=== PATIENT | female | born 1975 | race Caucasian/White ===

== ENCOUNTER 2018-05-29 10:05 | Emergency (ER) | payer OTHER ==
[2018-05-29 10:07] VITALS: BMI 35.2
[2018-05-29 11:09] VITALS: RESP 18; TEMP 98.2
[2018-05-29] MEDS ORDERED: Lidocaine 5% Patch TD ONE (11:47)
--- NOTE | 2018-05-29 11:59 | ED PDOC ---
Arrival/HPI - General Chief Complaint: Upper Extremity Problem/Injury Time Seen by Provider: 05/29/18 11:08 Historian: Patient - History of Present Illness Narrative History of Present Illness (Text): 05/29/18 11:25 43 year old female, whose past medical history includes anxiety and DVT, who presents to the Emergency department complaining of left-sided shoulder pain since 05/26/18, worse this morning. Patient reports the pain started with her left shoulder and radiated toward the back of her shoulder and to the neck. Patient states she was not able to sleep last night into this morning. Patient notes she is not able to lift her arm without pain, stating she felt numbness and pain when she was still able to lift and rotate her arm after onset. Patient states she took Tylenol for the pain, with no significant relief. Patient notes neck pain, numbness and tingling toward upper left arm, and shortness of breath with deep inhalation. Patient states she has never experienced these symptoms before. Patient denies any trauma, injury, fever, chills, chest pain, nausea, vomiting, diarrhea, urinary symptoms, back pain, headache, dizziness, or any other complaints. PMD: John Pickard Time/Duration: > week (pt notes onset as 3 days ago) Symptom Onset: Sudden Symptom Course: Unchanged Activities at Onset: Light Past Medical History - Provider Review Nursing Documentation Reviewed: Yes - Infectious Disease Hx of Infectious Diseases: None - Tetanus Immunization Tetanus Immunization: Unknown - Past Medical History Past Medical History: No Previous - Cardiac Hx Hypertension: Yes - Pulmonary Hx Asthma: Yes Hx Pulmonary Embolism: Yes (B/L x 2 years) - Hematological/Oncological Other/Comment: L leg DVT - Psychiatric Hx Psychophysiologic Disorder: No Hx Anxiety: No Hx Bipolar Disorder: No Hx Depression: No Hx Emotional Abuse: No Hx Hallucinations: No Hx Panic Disorder: No Hx Post Traumatic Stress Disorder: No Hx Psychosis: No Hx Physical Abuse: No Hx Schizophrenia: No Hx Sexual Abuse: No Hx Substance Use: Yes - Surgical History Hx Hysterectomy: Yes Hx Tubal Ligation: Yes - Anesthesia Hx Anesthesia: Yes Hx Anesthesia Reactions: No Hx Malignant Hyperthermia: No - Suicidal Assessment Feels Threatened In Home Enviroment: No Family/Social History - Physician Review Nursing Documentation Reviewed: Yes Family/Social History: No Known Family HX Smoking Status: Light Smoker < 10 Cigarettes Daily Hx Alcohol Use: Yes Frequency of alcohol use: Socially Hx Substance Use: Yes Substance used: marijuana Allergies/Home Meds Allergies/Adverse Reactions: Allergies No Known Allergies Allergy (Verified 06/02/16 19:08) Review of Systems - Physician Review All systems were reviewed & negative as marked: Yes - Review of Systems Constitutional: Normal. absent: Fevers, Night Sweats Respiratory: SOB (pt notes shortness of breath with deep breathing ). absent: Normal Cardiovascular: Normal. absent: Chest Pain Gastrointestinal: Normal. absent: Constipation, Diarrhea, Nausea, Vomiting Genitourinary Female: Normal. absent: Urine Output Changes Musculoskeletal: Neck Pain (pt notes neck pain ), Myalgias (Pt notes left-sided shoulder pain, which radiated toward back of left shoulder. notes pain with lifting and rotating). absent: Normal, Back Pain Neurological: Normal. absent: Headache, Dizziness Physical Exam Vital Signs Reviewed: Yes Vital Signs Temp Pulse Resp BP Pulse Ox 05/29/18 10:07 98.2 F 72 18 167/107 H 99 Temperature: Afebrile Blood Pressure: Hypertensive Pulse: Regular Respiratory Rate: Normal Appearance: Positive for: Well-Appearing, Non-Toxic Pain Distress: Mild Mental Status: Positive for: Alert and Oriented X 3 - Systems Exam Head: Present: Atraumatic, Normocephalic Pupils: Present: PERRL Extroacular Muscles: Present: EOMI Conjunctiva: Present: Normal Mouth: Present: Moist Mucous Membranes Neck: Present: Normal Range of Motion Respiratory/Chest: Present: Clear to Auscultation, Good Air Exchange. No: Respiratory Distress, Accessory Muscle Use Cardiovascular: Present: Regular Rate and Rhythm, Normal S1, S2. No: Murmurs Abdomen: No: Tenderness, Distention, Peritoneal Signs Back: Present: Normal Inspection Upper Extremity: Present: NORMAL PULSES, Tenderness (tender to palpation of left Trapezius muscle ), Capillary Refill < 2s. No: Normal Inspection, Normal ROM (Patient unable to abduct upper left extremity past 90 degrees ) Lower Extremity: Present: Normal Inspection. No: Edema Neurological: Present: GCS=15, CN II-XII Intact, Speech Normal Skin: Present: Warm, Dry, Normal Color. No: Rashes Psychiatric: Present: Alert, Oriented x 3, Normal Insight, Normal Concentration Medical Decision Making ED Course and Treatment: 05/29/18 11:25 Impression: 43 year old female presents to emergency department for left shoulder tenderness since 05/26/18. Differential Diagnosis included but are not limited to: -- Impingement syndrome -- Rotator cuff tear -- Frozen shoulder -- Bursitis Plan: -- Lidoderm -- Toradol -- Valium -- POC Urine test -- X-Ray of left shoulder -- Reassess and disposition Prior Visits: Notes and results from previous visits were reviewed. Patient was last seen in the emergency department on 06/02/2016, referred to ER to r/o left leg DVT. Pt was discharged home in stable condition, prescribed Percocet and Xarelto. Progress Notes: 05/29/18 13:28 Patient reassessed reporting marked improvement. She is able to fully abduct her L upper extremity beyond 90 degrees. Shoulder XR reviewed and noted to have no evidence of fracture or dislocation. Arthritic changes present. She is advised to follow up with an orthopedic surgeon for possible MRI and further evaluation. She acknowledges plan for discharge and will continue conservative management at home. Scripts provided. - RAD Interpretation Narrative RAD Interpretations (Text): X-Ray of left shoulder reviewed by radiologist, shows: Dictated By: Brian Lopez Dictated Date/Time: 05/29/18 14:19 Impression: No acute fractures. Minimal degenerative osteoarthritis. Radiology Orders: 05/29/18 11:48 SHOULDER LEFT [RAD] Stat [place] Support Worker: Radiologist - EKG Interpretation EKG Interpretation (Text): 05/29/18 11:14:15 EKG: Ordered, reviewed, and independently interpreted the EKG. Rate : 75 BPM Rhythm : NSR Interpretation : No ST elevations, no T-wave inversions, normal QT interval Interpreted by ED Physician: Yes Type: 12 lead EKG - Medication Orders Current Medication Orders: Discontinued Medications Diazepam (Valium) 5 mg PO ONCE ONE; Protocol Stop: 05/29/18 11:48 Ketorolac Tromethamine (Toradol) 60 mg IM STAT STA Stop: 05/29/18 11:48 Lidocaine (Lidoderm) 1 ea TD ONCE ONE Stop: 05/29/18 11:48 - Scribe Statement The provider has reviewed the documentation as recorded by the Scribe Virginia Acosta All medical record entries made by the Scribe were at my direction and personally dictated by me. I have reviewed the chart and agree that the record accurately reflects my personal performance of the history, physical exam, medical decision making, and the department course for this patient. I have also personally directed, reviewed, and agree with the discharge instructions and disposition. Disposition/Present on Arrival - Present on Arrival Any Indicators Present on Arrival: No History of DVT/PE: No History of Uncontrolled Diabetes: No Urinary Catheter: No History of Decub. Ulcer: No History Surgical Site Infection Following: None - Disposition Have Diagnosis and Disposition been Completed?: Yes Diagnosis: Shoulder pain, Arthritis Disposition: HOME/ ROUTINE Disposition Time: 13:32 Patient Plan: Discharge Condition: IMPROVED Discharge Instructions (ExitCare): Osteoarthritis (DC), Shoulder Pain (DC) Print Language: PERUVIAN Additional Instructions: All medical record entries made by the Scribe were at my direction and personally dictated by me. I have reviewed the chart and agree that the record accurately reflects my personal performance of the history, physical exam, medical decision making, and the department course for this patient. I have also personally directed, reviewed, and agree with the discharge instructions and disposition. Please follow up with the orthopedic surgeon in 1 week Please do not operate any heavy machinery for at least 4 hours after taking Valium Prescriptions: Diazepam [Valium] 2 mg PO PRN PRN #4 tablet PRN Reason: Muscle Spasm Ibuprofen [Motrin] 600 mg PO Q6H #12 tab Lidocaine 5% [Lidoderm] 1 ea TD Q12H #5 patch Referrals: John Hong MD [Primary Care Provider] - Follow up with primary Julián Mejia DO [Staff Provider] - Follow up with primary Forms: [employer] (Armenian), WORK NOTE
[2018-05-29 14:15] VITALS: BP 119/78; PULSE 69; O2SAT 98
--- NOTE | 2018-05-29 14:22 | RAD ---
Date of service: 05/29/2018 PROCEDURE: Radiographs of the Left Shoulder HISTORY: Left shoulder pain with abduction. COMPARISON: No prior. FINDINGS: BONES: Normal. No fracture. JOINTS: Very minimal degenerative osteoarthritis of left acromioclavicular joint.. SOFT TISSUES: Normal. OTHER FINDINGS: None. IMPRESSION: No acute fractures. Minimal degenerative osteoarthritis
--- NOTE | 2018-05-29 16:36 | CARD ---
APPROVED REPORT Date of service: 05/29/2018 EKG Measurement Heart [id number] <Conclusion> Normal sinus rhythm Normal ECG
== END 2018-05-29 15:03 | disposition home or self-care (01) ==
LOC: ED 10:05
DX: M25.512 Pain in left shoulder (principal); M19.012 Primary osteoarthritis, left shoulder; F17.210 Nicotine dependence, cigarettes, uncomplicated; I10 Essential (primary) hypertension
CPT/HCPCS: 73030; 93005; 96372; 99284; J1885